=== PATIENT | male | born 1945 | race Caucasian/White ===

== ENCOUNTER 2017-08-10 07:09 | Outpatient (CLI) | payer OTHER | END 2017-08-10 07:22 | disposition home or self-care (01) | LOC: NUCLEAR 07:09 | DX: I28.8 Other diseases of pulmonary vessels (principal); I49.3 Ventricular premature depolarization | CPT/HCPCS: 78452; 93017; A9500 ==

== ENCOUNTER 2022-10-18 12:27 | Emergency (ER) | payer OTHER ==
[~2022-10-18] VITALS: Ht 175.3 cm; Wt 93.4 kg
== END 2022-10-18 20:10 | disposition home or self-care (01) ==
LOC: ER 12:27
PROVIDERS: Emergency Medicine
DX: F10.20 Alcohol dependence, uncomplicated (principal); Z88.0 Allergy status to penicillin
CPT/HCPCS: 36415; 70450; 71045; 93005; 96365; 96366; 99284; J7030